=== PATIENT | female | born 1990 | race Two or more races ===

== ENCOUNTER 2017-02-10 13:52 | Emergency (ER) | payer OTHER ==
[~2017-02-10] VITALS: Ht 162.6 cm; Wt 95.3 kg
[2017-02-10 13:52] VITALS: BP 107/60
[2017-02-10] MEDS ORDERED: IBUPROFEN 600 MG TABLET PO ONE ×2 (14:24→14:30)
== END 2017-02-10 15:41 | disposition home or self-care (01) ==
LOC: ER 13:53
DX: S93.401A Sprain of unspecified ligament of right ankle, initial encounter (principal); J02.9 Acute pharyngitis, unspecified; Z98.890 Other specified postprocedural states; X58.XXXA Exposure to other specified factors, initial encounter; Y93.89 Activity, other specified; Y92.89 Other specified places as the place of occurrence of the external cause; Y99.9 Unspecified external cause status
CPT/HCPCS: 73610-TC; 73630-TC; A4606; Z7610

== ENCOUNTER 2018-11-07 02:40 | Emergency (ER) | payer OTHER ==
[~2018-11-07] VITALS: Ht 160 cm; Wt 95.3 kg
[2018-11-07 02:42] VITALS: BP 133/77
[2018-11-07] MEDS ORDERED: CYCLOBENZAPRINE 10 MG TABLET ONE (02:58)
[2018-11-07] MEDS ORDERED: DEXAMETHASONE SOD PHOSPHATE 10 MG/ML VIAL ONE (02:58)
[2018-11-07] MEDS ORDERED: CYCLOBENZAPRINE 10 MG TABLET PO ONE (03:00)
[2018-11-07] MEDS ORDERED: DEXAMETHASONE SOD PHOSPHATE 4 MG/ML VIAL IM ONE (03:00)
== END 2018-11-07 03:11 | disposition home or self-care (01) ==
LOC: ER 02:48
DX: M62.838 Other muscle spasm (principal); M54.12 Radiculopathy, cervical region; Z98.890 Other specified postprocedural states
CPT/HCPCS: J1100

== ENCOUNTER 2019-08-07 15:38 | Emergency (ER) | payer OTHER ==
[~2019-08-07] VITALS: Ht 160 cm; Wt 102.1 kg
[2019-08-07 15:48] VITALS: BP 129/88
[2019-08-07] MEDS ORDERED: IBUPROFEN 600 MG TABLET PO ONE ×3 (15:59→16:02)
== END 2019-08-07 16:08 | disposition home or self-care (01) ==
LOC: ER 15:38
DX: J02.9 Acute pharyngitis, unspecified (principal); Z98.890 Other specified postprocedural states

== ENCOUNTER 2019-09-10 21:21 | Emergency (ER) | payer OTHER ==
[~2019-09-10] VITALS: Ht 165.1 cm; Wt 100.7 kg
--- NOTE | 2019-09-10 21:56 | NUR ---
PT CAME TO ER BED 4 C/O THROAT PAIN ON BOTH LEFT AND RIGHT SIDE. PATIENT STATES THAT SHE HAS HAD IT FOR 1x MONTH, TOOK ANTIBIOTICS WITH NO RELIEF. AAOX4. AIRWAY NOT OCCLUDED. NOT IN ANY RESPIRATORY DISTRESS. CONNECTED TO THE MONITOR.
[2019-09-10] MEDS ORDERED: IBUPROFEN 400 MG TABLET PO ONE (22:00)
--- NOTE | 2019-09-10 22:01 | NUR ---
SEEN AND EXAMINED BY ADIA BACH
[2019-09-10] MEDS ORDERED: IBUPROFEN 400 MG TABLET ONE (22:02)
--- NOTE | 2019-09-10 22:12 | NUR ---
STREP TEST TAKEN TO LAB
--- NOTE | 2019-09-10 23:01 | NUR ---
AIR POLLUTION ANALYST AT BEDSIDE FOR BLOOD DRAW FOR MONO
[2019-09-10 23:25] LABS: MONOTEST NEGATIVE (NEGATIVE)
[2019-09-10] MEDS ORDERED: DEXAMETHASONE SOD PHOSPHATE 10 MG/ML VIAL MC ONE (23:30)
[2019-09-10] MEDS ORDERED: DEXAMETHASONE 1 MG TABLET ONE (23:46)
[2019-09-10] MEDS ORDERED: DEXAMETHASONE 4 MG TABLET ONE (23:46)
--- NOTE | 2019-09-10 23:51 | NUR ---
Patient discharged to home in stable condition. Written and verbal after care instructions given. Patient verbalizes understanding of instruction.
[2019-09-10 23:52] VITALS: BP 132/76
== END 2019-09-10 23:52 | disposition home or self-care (01) ==
LOC: ER 21:24
DX: J03.90 Acute tonsillitis, unspecified (principal); Z98.890 Other specified postprocedural states
CPT/HCPCS: 36415; 86308; 87070; 87880; 99283; J8540 ×2; 86403-TC

== ENCOUNTER 2020-06-09 18:30 | Emergency (ER) | payer OTHER ==
[~2020-06-09] VITALS: Ht 162.6 cm; Wt 106.6 kg
--- NOTE | 2020-06-09 20:39 | NUR ---
PT BIB TO [facility], PAC DEGRASSI IN ROOM FOR EVAL.
--- NOTE | 2020-06-09 20:54 | NUR ---
CALLED LAB FOR COVID SWAB
--- NOTE | 2020-06-09 21:22 | NUR ---
STREP AND COVID SWAB COLLECTED. SENT TO LAB
--- NOTE | 2020-06-09 22:02 | NUR ---
CALLED RADIOLOGY FOR FOLLOW UP CXR
--- NOTE | 2020-06-09 22:33 | NUR ---
RAPID INFLUENZA COLLECTED SEND TO LAB
[2020-06-09 22:57] VITALS: BP 118/70
== END 2020-06-09 22:57 | disposition home or self-care (01) ==
LOC: ER 18:33
DX: J11.1 Influenza due to unidentified influenza virus with other respiratory manifestations (principal); Z20.828 Contact with and (suspected) exposure to other viral communicable diseases
CPT/HCPCS: 71045; 87070; 87804; 87880; 99284; C9803; U0003; 86403-TC

== ENCOUNTER → 2021-05-07 | Emergency (ER) | payer OTHER ==
[~2021-05-07] VITALS: Ht 160 cm; Wt 108.9 kg
[~2021-05-07] MED LIST: ACET-907 PO; IBUP-1957 PO; IBUPROFEN 400 MG TABLET ONE; IBUPROFEN 400 MG TABLET PO ONE; TRAMADOL HCL 50 MG TABLET ONE; TRAMADOL HCL 50 MG TABLET PO ONE
--- NOTE | 2021-05-07 19:00 | NUR ---
LOWER BACK AND R ELBOW PAIN S/P SLIP AND FALL WHILE GOING DOWN THE STAIRS. LAST FRIDAY NIGHT. PT A/OX4. TOLERATING ROOM AIR WELL.
--- NOTE | 2021-05-07 19:09 | NUR ---
PT SEEN AND EXAMINED BY REECE CLEANING.
--- NOTE | 2021-05-07 19:50 | NUR ---
PT TAKEN TO XRAY; AMBULATORY
--- NOTE | 2021-05-07 20:23 | NUR ---
PT RETURNED TO ER ROOM 11
[2021-05-07 21:00] VITALS: BP 135/83
--- NOTE | 2021-05-07 21:01 | NUR ---
Patient discharged to home in stable condition. Written and verbal after care instructions given. Patient verbalizes understanding of instruction.
== END | disposition home or self-care (01) ==
LOC: ER 18:46
DX: S32.2XXA Fracture of coccyx, initial encounter for closed fracture (principal); S13.8XXA Sprain of joints and ligaments of other parts of neck, initial encounter; S50.01XA Contusion of right elbow, initial encounter; Z98.890 Other specified postprocedural states; W01.0XXA Fall on same level from slipping, tripping and stumbling without subsequent striking against object, initial encounter; Y93.89 Activity, other specified; Y92.89 Other specified places as the place of occurrence of the external cause; Y99.8 Other external cause status
CPT/HCPCS: 72110-TC; 72220-TC; 73030-TC; 73080-TC; 84703-TC

== ENCOUNTER 2021-07-15 12:26 | Emergency (ER) | payer OTHER ==
[~2021-07-15] VITALS: Ht 160 cm; Wt 108.9 kg
[~2021-07-15 12:26] MED LIST changes: -IBUPROFEN 400 MG TABLET ONE; -IBUPROFEN 400 MG TABLET PO ONE; -TRAMADOL HCL 50 MG TABLET ONE; -TRAMADOL HCL 50 MG TABLET PO ONE
[2021-07-15 12:33] VITALS: BP 134/71
--- NOTE | 2021-07-15 12:38 | NUR ---
AT BEDSIDE FOR EVAL.
[2021-07-15] MEDS ORDERED: CEPH500C2 PO (12:41)
--- NOTE | 2021-07-15 12:48 | NUR ---
Patient discharged to home in stable condition. Written and verbal after care instructions given. Patient verbalizes understanding of instruction.
== END 2021-07-15 12:50 | disposition home or self-care (01) ==
LOC: ER 12:27
DX: L73.2 Hidradenitis suppurativa (principal); Z98.890 Other specified postprocedural states; Z79.899 Other long term (current) drug therapy

== ENCOUNTER 2021-07-22 16:04 | Emergency (ER) | payer OTHER ==
[~2021-07-22] VITALS: Ht 160 cm; Wt 108.9 kg
[~2021-07-22 16:04] MED LIST changes: +CEPH500C2 PO
[2021-07-22 16:18] VITALS: BP 134/78
[2021-07-22] MEDS ORDERED: ACET325C7 PO (17:53)
[2021-07-22] MEDS ORDERED: ONDA4TAB5 PO (17:56)
--- NOTE | 2021-07-22 18:06 | NUR ---
Patient discharged to home in stable condition. Written and verbal after care instructions given. Patient verbalizes understanding of instruction.
== END 2021-07-22 18:06 | disposition home or self-care (01) ==
LOC: ER 16:06
DX: R51.9 Headache, unspecified (principal); F07.81 Postconcussional syndrome; Z98.890 Other specified postprocedural states; W22.8XXA Striking against or struck by other objects, initial encounter; Y93.89 Activity, other specified; Y92.89 Other specified places as the place of occurrence of the external cause; Y99.8 Other external cause status

== ENCOUNTER → 2022-03-23 | Emergency (ER) | payer OTHER ==
[~2022-03-23] MED LIST changes: +ACET325C7 PO; +ONDA4TAB5 PO
== END | disposition left against medical advice (07) ==
LOC: ER 21:54
DX: Z53.21 Procedure and treatment not carried out due to patient leaving prior to being seen by health care provider (principal)